=== PATIENT | male | born 1990 | race Caucasian/White ===

== ENCOUNTER 2017-01-05 09:10 | Emergency (ER) | payer OTHER ==
[~2017-01-05] VITALS: Ht 175.3 cm; Wt 71.3 kg
[~2017-01-05 09:10] MED LIST: ACET500C5 PO; ALBU8.5H3 INH; BENZ100C70 PO; DICY10CA60 PO; FAMO-96 PO; ONDA-43 PO; PSEU120T11 PO; UDROBDM PO
[2017-01-05 09:12] VITALS: Ht 175.3 cm; Wt 71.3 kg
[2017-01-05] MEDS ORDERED: AZIT250T94 PO (09:58)
[2017-01-05] MEDS ORDERED: ALBU8.5H3 INH (09:58)
[2017-01-05] MEDS ORDERED: PRED20TA PO (09:58)
--- NOTE | 2017-01-05 09:59 | ERD ---
ER Documentation Chief Complaint Date/Time DATE: 01/05/17 TIME: 09:58 Chief Complaint pt bib self with c/o sore throat and cough a few days ago HPI This is a 18-year-old male complains of cough for 4 days with some dark yellow productive sputum with onset of sore throat yesterday. Says he has subjective fevers and chills no headache vomiting diarrhea nausea no shortness of breath no photophobia or neck pain ROS All systems reviewed and are negative except as per history of present illness. Medications Home Meds Active Scripts Prednisone* (Prednisone*) 20 Mg Tab, 60 MG PO DAILY for 5 Days, TAB Prov:ANNKINDRAOLELEOLOS A. DO 01/05/17 Albuterol Sulfate* (Proair HFA*) 8.5 Gm Hfa.aer.ad, 2 PUFF INH Q4, #1 INHALER Prov:ANNKINDRAOLEVERONICAARTIS Willis. DO 01/05/17 Azithromycin* (Zithromax*) 250 Mg Tablet, 250 MG PO .EvelynPACK DIRECTED, #6 TAB TAKE 500 MG (2 TABS) THE FIRST DAY THEN 250 MG (1 TAB) DAYS 2-5 Prov:ANNKINDRAOLEVERONICASTOLOS A. DO 01/05/17 Albuterol Sulfate* (Proair HFA*) 8.5 Gm Hfa.aer.ad, 2 PUFF INH Q4, #1 INHALER Prov:LIBAN MATHEW PA-C 05/04/16 Pseudoephedrine Hcl (Sudafe 12-Hour) 120 Mg Tablet.er, 120 MG PO BID Y for CONGESTION for 14 Days, TAB.SA Prov:LIBAN MATHEW PA-C 05/04/16 Guaifenesin-Dextromethorphan* (Robitussin* DM) 100MG/10MG/5ML Syrup, 5 ML PO Q4H Y for COUGH for 14 Days, ML Prov:LIBAN MATHEW PA-C 05/04/16 Acetaminophen* (Tylophen*) 500 Mg Capsule, 1 CAP PO Q6H Y for PAIN AND OR ELEVATED TEMP, #20 CAP Prov:LIBAN MATHEW PA-C 05/04/16 Benzonatate* (Tessalon Perle*) 100 Mg Capsule, 100 MG PO Q8H Y for COUGH for 14 Days, CAP Prov:LIBAN MATHEW DORENEC 05/04/16 Famotidine* (Pepcid*) 20 Mg Tablet, 20 MG PO BID for 4 Days, TAB Prov:CATRACHITO LANDEROS Nicole 04/08/16 Dicyclomine Hcl* (Bentyl*) 10 Mg Capsule, 10 MG PO QID for 3 Days, CAP Prov:CATRACHITO LANDEROS C 04/08/16 Ondansetron Hcl* (Zofran*) 4 Mg Tab, 4 MG PO Q4H Y for NAUSEA AND OR VOMITING for 5 Days, TAB Prov:CATRACHITO LANDEROS C 04/08/16 Allergies Allergies: Coded Allergies: No Known Allergy (Unverified , 05/04/16) PMhx/Soc Medical and Surgical Hx: pt denies Surgical Hx History of Surgery: No Anesthesia Reaction: No Hx Neurological Disorder: No Hx Respiratory Disorders: Yes (CHRONIC BRONCHITIS) Hx Cardiac Disorders: Yes (HTN) Hx Psychiatric Problems: No Hx Miscellaneous Medical Probl: No Hx Alcohol Use: No Hx Substance Use: No Hx Tobacco Use: Yes (quit 01/05) Smoking Status: Never smoker FmHx Family History: No coronary disease Physical Exam Vitals Vital Signs Date Time Temp Pulse Resp B/P Pulse Ox O2 Delivery O2 Flow Rate FiO2 01/05/17 09:12 98.3 74 16 146/79 97 Physical Exam Const: [Well-developed, well-nourished] Head: [Atraumatic, normocephalic] Eyes: [Normal Conjunctiva, PERRLA, EOMI, normal sclera, no nystagmus] ENT: [Normal External Ears, Nose and Mouth, moist mucus membranes mild oropharyngeal erythema.] Neck: [Full range of motion. No meningismus, no lymphadenopathy.] Resp: [Clear to auscultation bilaterally, no wheezing, rhonchi, rales] Cardio: [Regular rate and rhythm, no murmurs, S1 S2 present] Abd: [Soft, non tender x 4, non distended. Normal bowel sounds, no guarding or rebound, no pulsitile abdominal masses or bruits] Skin: [No petechiae or rashes, no ecchymosis , no maculopapular rash] Back: [No midline or flank tenderness] Ext: [No cyanosis, or edema, FROM x 4, normal inspection, neurovascularly intact x 4] Neur: [Awake and alert, STR 5/5 x 4, sensation intact x 4, no focal findings, cerebellum intact] Psych: [Normal Mood and Affect] Departure Diagnosis: Primary Impression: Bronchitis Additional Impression: Sore throat Condition: Stable Patient Instructions: Self-Care for Sore Throats, Bronchitis, Antiobiotic Treatment (Adult) RICKY LOZOYA DO Jan 05, 2017 09:59
== END 2017-01-05 10:25 | disposition home or self-care (01) ==
LOC: FTE 09:10
DX: J20.9 Acute bronchitis, unspecified (principal); I10 Essential (primary) hypertension; Z87.891 Personal history of nicotine dependence
CPT/HCPCS: 99284

== ENCOUNTER 2017-12-21 09:47 | Emergency (ER) | END 2017-12-21 11:18 | disposition home or self-care (01) ==

== ENCOUNTER 2018-03-17 08:27 | Emergency (ER) | END 2018-03-17 09:54 | disposition home or self-care (01) ==

== ENCOUNTER 2018-03-26 02:09 | Emergency (ER) | END 2018-03-26 04:10 | disposition home or self-care (01) ==

== ENCOUNTER 2018-09-19 12:29 | Emergency (ER) | payer OTHER ==
[~2018-09-19] VITALS: Ht 175.3 cm; Wt 83.3 kg
[~2018-09-19 12:29] MED LIST changes: -ALBU8.5H3 INH; +ALBU8.5H8 INH; +AZIT250T PO; +BENZ-6 PO; -BENZ100C70 PO; +BENZ1LOZ52 MM; +BENZ200C68 PO; +CETI10CA PO; +D-ME473S2 PO; +DICY10CA40 PO; -DICY10CA60 PO; +GUAI5SYR2 PO; +NAPR-985 PO; -ONDA-43 PO; +ONDA4TAB13 PO; +PRED20TA PO; -UDROBDM PO
[2018-09-19 13:14] VITALS: Ht 175.3 cm; Wt 83.3 kg
--- NOTE | 2018-09-19 15:08 | ERD ---
ER Documentation Chief Complaint Chief Complaint abdominal pain x 1 week, blood in stool today HPI 27-year-old male presents complaint abdominal pain for the past week. States the pain is made worse after eating. In addition he says that he saw stool and his blood today. He states that the stool has been leaking out and is needed to use tissues in order to stop it. Denies having had blood in stool before. Let us described as bright red. He does state he has a history of gastritis. He also has self-reported history of anxiety. Abdominal pain is located in mostly in the left lower quadrant. Denies any current pain. Denies having history of diverticulitis or diverticulosis. Denies any nausea, vomiting, diarrhea, con stipation, fevers, chills. ROS All systems reviewed and are negative except as per history of present illness. Medications Home Meds Active Scripts Acetaminophen* (Tylophen*) 500 Mg Capsule, 2 CAP PO Q8H PRN for PAIN AND OR ELEVATED TEMP, #20 CAP Prov:VICKI MOYA 09/19/18 Famotidine* (Pepcid*) 20 Mg Tablet, 20 MG PO BID for GERD for 14 Days, TAB Prov:VICKI MOYA 09/19/18 Dextromethorphan Hb-Promethazine Hcl* (Promethazine DM* Syrup) 473 Ml Syrup, 5 ML PO Q6 PRN for COUGH, #100 ML Prov:VICKI ANDRADE PA-C 03/26/18 Benzonatate* (Benzonatate*) 200 Mg Capsule, 200 MG PO TID PRN for COUGH, #15 CAP Prov:VICKI ANDRADE PA-C 03/26/18 Acetaminophen* (Tylophen*) 500 Mg Capsule, 1 CAP PO Q6H PRN for PAIN AND OR ELEVATED TEMP, #20 CAP Prov:CLAUDIA CARRASQUILLO PA-C 03/17/18 Dextromethorphan Hb-Promethazine Hcl* (Promethazine DM* Syrup) 473 Ml Syrup, 5 ML PO Q6 PRN for COUGH, #4 OZ Prov:CLAUDIA CARRASQUILLO PA-C 03/17/18 Cetirizine Hcl* (Zyrtec*) 10 Mg Capsule, 10 MG PO DAILY, #10 TAB.CHEW Prov:CLAUDIA CARRASQUILLO PA-C 03/17/18 Benzocaine/Menthol* (Cepacol* Sore Throat Lozenges) 1 Each Lozenge, 1 EACH MM q2h PRN for SORE THROAT, #20 LOZENGE Prov:CLAUDIA CARRASQUILLO PA-C 03/17/18 Acetaminophen* (Tylophen*) 500 Mg Capsule, 1 CAP PO Q6H PRN for PAIN AND OR EL EVATED TEMP, #30 CAP Prov:HUGO JANG PA-C 12/21/17 Naproxen* (Naprosyn*) 500 Mg Tablet, 500 MG PO BID PRN for PAIN AND/OR INFLAMMATION, #30 TAB Prov:HUGO JANG PA-C 12/21/17 Prednisone* (Prednisone*) 20 Mg Tab, 60 MG PO DAILY for 5 Days, TAB Prov:RICKY LOZOYA DO 01/05/17 Albuterol Sulfate* (Proair HFA*) 8.5 Gm Hfa.aer.ad, 2 PUFF INH Q4, #1 INHALER Prov:RICKY LOZOYA DO 01/05/17 Azithromycin* (Zithromax*) 250 Mg Tablet, 250 MG PO .ZPACK DIRECTED, #6 TAB TAKE 500 MG (2 TABS) THE FIRST DAY THEN 250 MG (1 TAB) DAYS 2-5 Prov:RICKY LOZOYA DO 01/05/17 Albuterol Sulfate* (Proair HFA*) 8.5 Gm Hfa.aer.ad, 2 PUFF INH Q4, #1 INHALER Prov:LIBAN MATHEW PA-C 05/04/16 Pseudoephedrine Hcl (Sudafe 12-Hour) 120 Mg Tablet.er, 120 MG PO BID PRN for CONGESTION for 14 Days, TAB.SA Prov:LIBAN MATHEW PA-C 05/04/16 Guaifenesin-Dextromethorphan* (Robitussin* DM) 100MG/10MG/5ML Syrup, 5 ML PO Q4H PRN for COUGH for 14 Days, ML Prov:LIBAN MATHEW PA-C 05/04/16 Acetaminophen* (Tylophen*) 500 Mg Capsule, 1 CAP PO Q6H PRN for PAIN AND OR ELEVATED TEMP, #20 CAP Prov:LIBAN MATHEW PA-C 05/04/16 Benzonatate* (Tessalon Perle*) 100 Mg Capsule, 100 MG PO Q8H PRN for COUGH for 14 Days, CAP Prov:LIBAN MATHEW PA-C 05/04/16 Famotidine* (Pepcid*) 20 Mg Tablet, 20 MG PO BID for 4 Days, TAB Prov:LETI,CATRACHITO C 04/08/16 Dicyclomine HCl (Dicyclomine HCl) 10 Mg Capsule, 10 MG PO QID for 3 Days, CAP Prov:LETI,CATRACHITO C 04/08/16 Ondansetron Hcl* (Zofran*) 4 Mg Tab, 4 MG PO Q4H PRN for NAUSEA AND OR VOMITING for 5 Days, TAB Prov:MIKALA LANDEROSNA C 04/08/16 Allergies Allergies: Coded Allergies: No Known Allergy (Unverified , 12/21/17) PMhx/Soc History of Surgery: No Anesthesia Reaction: No Hx Neurological Disorder: No Hx Respiratory Disorders: Yes (CHRONIC BRONCHITIS) Hx Cardiac Disorders: No Hx Psychiatric Problems: No Hx Miscellaneous Medical Probl: No Hx Alcohol Use: No Hx Substance Use: No Hx Tobacco Use: No FmHx Family History: No diabetes, No coronary disease, No other Physical Exam Vitals Vital Signs Date Temp Pulse Resp B/P (MAP) Pulse Ox O2 O2 Flow FiO2 Time Delivery Rate 09/19/18 98.2 62 18 158/107 97 13:14 (124) Physical Exam Const: No acute distress Head: Atraumatic Eyes: Normal Conjunctiva ENT: Normal External Ears, Nose and Mouth. Neck: Full range of motion. No meningismus. Resp: Clear to auscultation bilaterally Cardio: Regular rate and rhythm, no murmurs Abd: Soft, non tender, non distended. Normal bowel sounds Skin: No petechiae or rashes Back: No midline or flank tenderness Ext: No cyanosis, or edema Neur: Awake and alert Psych: Normal Mood and Affect Rectal: No blood noted. No rectal masses palpated. There is tenderness to palpation on exam in the rectal wall. Result Diagram: 09/19/18 1518 09/19/18 1518 Results 24 hrs Laboratory Tests Test 09/19/18 15:18 4/29/19 15:55 White Blood Count 6.5 10^3/ul Red Blood Count 5.50 10^6/ul Hemoglobin 15.9 g/dl Hematocrit 47.8 % Mean Corpuscular Volume 86.9 fl Mean Corpuscular Hemoglobin 28.9 pg Mean Corpuscular Hemoglobin Concent 33.3 g/dl Red Cell Distribution Width 12.1 % Platelet Count 262 10^3/UL Mean Platelet Volume 8.5 fl Immature Granulocytes % 0.300 % Neutrophils % 52.8 % Lymphocytes % 35.7 % Monocytes % 8.9 % Eosinophils % 1.8 % Basophils % 0.5 % Nucleated Red Blood Cells % 0.0 /100WBC Immature Granulocytes # 0.020 10^3/ul Neutrophils # 3.5 10^3/ul Lymphocytes # 2.3 10^3/ul Monocytes # 0.6 10^3/ul Eosinophils # 0.1 10^3/ul Basophils # 0.0 10^3/ul Nucleated Red Blood Cells # 0.0 10^3/ul Sodium Level 144 mmol/L Potassium Level 3.7 mmol/L Chloride Level 102 mmol/L Carbon Dioxide Level 30 mmol/L Anion Gap 12 Blood Urea Nitrogen 14 mg/dl Creatinine 0.86 mg/dl Est Glomerular Filtrat Rate mL/min > 60 mL/min Glucose Level 96 mg/dl Calcium Level 10.5 mg/dl Total Bilirubin 0.4 mg/dl Direct Bilirubin 0.00 mg/dl Indirect Bilirubin 0.4 mg/dl Aspartate Amino Transf (AST/SGOT) 24 IU/L Alanine Aminotransferase (ALT/SGPT) 25 IU/L Alkaline Phosphatase 57 IU/L Total Protein 8.4 g/dl Albumin 5.1 g/dl Globulin 3.30 g/dl Albumin/Globulin Ratio 1.54 Lipase 88 U/L Urine Color COLORLESS Urine Clarity CLEAR Urine pH 7.0 Urine Specific [place] 1.003 Urine Ketones NEGATIVE mg/dL Urine Nitrite NEGATIVE mg/dL Urine Bilirubin NEGATIVE mg/dL Urine Urobilinogen NEGATIVE mg/dL Urine Leukocyte Esterase NEGATIVE Stanley/ul Urine Hemoglobin NEGATIVE mg/dL Urine Glucose NEGATIVE mg/dL Urine Total Protein NEGATIVE mg/dl Current Medications Medications Dose Sig/Kody Start Time Status Last (Trade) Ordered Route PRN Stop Time Admin Dose Reason Admin IV Flush 10 ml STK-MED 09/19/18 DC (NS 10 ml) ONCE .ROUTE 16:12 09/19/18 16:13 Sodium 100 ml @ ud STK-MED 09/19/18 DC Chloride ONCE .ROUTE 16:12 09/19/18 16:13 Iohexol 150 ml STK-MED 09/19/18 DC (Omnipaque ONCE .ROUTE 16:12 300mg/ ml) 09/19/18 16:13 Procedures/MDM DIAGNOSTIC IMAGING REPORT Patient: MAGALI GÓMEZ : 1990 Age: 27 Sex: M MR #: [id number] DOS: 09/19/18 1455 Ordering MD: VICKI MOYA Location: [facility] Room/Bed: PROCEDURE: CT Abdomen and Pelvis with contrast. CLINICAL INDICATION: Abdomen and pelvis pain. Rectal bleeding. TECHNIQUE: CT scan of the abdomen and pelvis with contrast was performed. The patient was scanned following the uncomplicated intravenous administration of 90 ml of Omnipaque-300. Coronal and sagittal reformatted images were obtained from the axial source images. Images were reviewed on a high-resolution PACS workstation. Total exam DLP is 651.18 mGy-cm. CTDIvol is 10.02 mGy. One or more of the following dose reduction techniques were used: Automated exposure control, adjustment of the mA and/or kV according to patient size, use of iterative reconstruction technique. DICOM images are available. COMPARISON: CT scan of the abdomen and pelvis dated 08/13/2014. FINDINGS: The lung bases are normal. There is no pleural effusion. The liver is normal in size and attenuation. There is no focal hepatic lesion. The gallbladder and bile ducts are normal. The spleen is normal in size. There is no focal splenic lesion. Both adrenals are normal with no enlargement or mass. The pancreas is unremarkable with no mass or evidence of pancreatitis. Both kidneys demonstrate normal contrast enhancement. There is no renal mass or hydronephrosis. The abdominal aorta is not dilated. There is no retroperitoneal lymphadenopathy or mass. There is no pelvic lymphadenopathy or mass. The bladder and distal ureters are normal. The appendix is well seen and appears normal. The bowel and mesentery are normal. There is no free fluid or free gas. The osseous structures are unremarkable with no fracture or lytic lesion. IMPRESSION: 1. Unremarkable contrast enhanced CT scan of the abdomen and pelvis. 2. No change from 08/13/2014. RPTAT: QQ .Miguel Moreno MD, MD Date Time Electronically viewed and signed by .Miguel Moreno MD, MD on 09/19/2018 16:52 .R/ CC: VICKI MOYA [phone] MDM: Because patient was complaining of abdominal pain in the low left quadrant along with bloody stools, there was concern for possible diverticular colitis. CT abdomen pelvis was ordered and results were within normal limits. I have low suspicion for appendicitis due to patient history and exam and imaging results. I have low suspicion for volvulus or obstruction due patient history and exam, including lack of history of biliary emesis and normal physical exam. I have low suspicion for testicular torsion or phimosis due to patient history and normal exam. I have low suspicion of invasive diarrhea due to patient history and exam, including lack of hematochezia. I have low suspicion of DKA based on patient history and exam, including normal glucose, urinalysis, and lack of signs of dehydration. I have low suspicion for adrenal crisis, AAA, mesenteric ischemia, pyelonephritis, cholecystitis, aortic dissection, ectopic, MT, pneumonia, acute pancreatitis, PID, or other emergent causes based on patient history and exam. Most likely diagnosis is gastritis. There is no bleeding on rectal exam but there was tenderness to palpation indicating possible internal hemorrhoid versus fissure. Patient advised to follow-up with his primary care regarding this. Based on these findings I do not feel that additional labs, imaging. or antibiotics are necessary. Patient was discharged with strict ER precautions. Patient was recommended to follow-up with PMD. All questions answered at discharge. Departure Diagnosis: Primary Impression: Gastritis Gastritis type: unspecified gastritis Chronicity: acute Gastritis bleeding: presence of bleeding unspecified Qualified Codes: K29.00 - Acute gastritis without bleeding Additional Impression: BRBPR (bright red blood per rectum) Condition: Stable VICKI MOYA Sep 19, 2018 15:08
[2018-09-19] MEDS ORDERED: IOHEXOL 300MG/ML 150 ML BTL ONE (16:12)
[2018-09-19] MEDS ORDERED: SOD CHLORIDE 0.9% 100 ML ONE (16:12)
[2018-09-19] MEDS ORDERED: FAMO-96 PO (17:16)
[2018-09-19] MEDS ORDERED: ACET500C5 PO (17:16)
== END 2018-09-19 17:38 | disposition home or self-care (01) ==
LOC: FTE 12:29
DX: K29.00 Acute gastritis without bleeding (principal); K62.5 Hemorrhage of anus and rectum
CPT/HCPCS: 36415; 74177; 80053; 81003; 83690; 85025; Q9967; Z7502; Z7610

== ENCOUNTER 2018-11-13 14:54 | Emergency (ER) | payer OTHER ==
[~2018-11-13] VITALS: Ht 170.2 cm; Wt 77.1 kg
[2018-11-13 15:16] VITALS: BP 152/81; PULSE 86; RESP 18; Ht 170.2 cm; Wt 77.1 kg
[2018-11-13] MEDS ORDERED: PRED20TA PO (15:49)
[2018-11-13] MEDS ORDERED: PROM5SYR2 PO (15:49)
--- NOTE | 2018-11-13 15:59 | ERD ---
ER Documentation Chief Complaint Chief Complaint hoarse voice and head congesiton x 2 days, denies sorethroat HPI 27-year-old male presents with complaint of hoarse voice, congestion, and sore throat for the past 2 days. Patient states that he had fevers as well for which she is taking Tylenol but has not had fever today. Last time he took Tylenol was yesterday. Denies headache, stiff neck, photophobia, abdominal pain, chest pain, drooling, trismus, difficulty swallowing, muffled voice, difficulty breathing, rash, or neck stiffness. ROS All systems reviewed and are negative except as per history of present illness. Medications Home Meds Active Scripts Promethazine HCl/Codeine (Prometh-Codein 6.25-10 mg/5 ml) 5 Ml Syrup, 5 ML PO Q6, #4 OZ Prov:VICKI MOYA 11/13/18 Prednisone* (Prednisone*) 20 Mg Tab, 40 MG PO DAILY for 4 Days, TAB Prov:VICKI MOYA 11/13/18 Acetaminophen* (Tylophen*) 500 Mg Capsule, 2 CAP PO Q8H PRN for PAIN AND OR ELEVATED TEMP, #20 CAP Prov:VICKI MOYA 09/19/18 Famotidine* (Pepcid*) 20 Mg Tablet, 20 MG PO BID for GERD for 14 Days, TAB Prov:VICKI MOYA 09/19/18 Dextromethorphan Hb-Promethazine Hcl* (Promethazine DM* Syrup) 473 Ml Syrup, 5 ML PO Q6 PRN for COUGH, #100 ML Prov:VICKI ANDRADE PA-C 03/26/18 Benzonatate* (Benzonatate*) 200 Mg Capsule, 200 MG PO TID PRN for COUGH, #15 CAP Prov:VICKI ANDRADE PA-C 03/26/18 Acetaminophen* (Tylophen*) 500 Mg Capsule, 1 CAP PO Q6H PRN for PAIN AND OR ELEVATED TEMP, #20 CAP Prov:CLAUDIA CARRASQUILLO PA-C 03/17/18 Dextromethorphan Hb-Promethazine Hcl* (Promethazine DM* Syrup) 473 Ml Syrup, 5 ML PO Q6 PRN for COUGH, #4 OZ Prov:CLAUDIA CARRASQUILLO PA-C 03/17/18 Cetirizine Hcl* (Zyrtec*) 10 Mg Capsule, 10 MG PO DAILY, #10 TAB.CHEW Prov:CLAUDIA CARRASQUILLO PA-C 03/17/18 Benzocaine/Menthol* (Cepacol* Sore Throat Lozenges) 1 Each Lozenge, 1 EACH MM q2 h PRN for SORE THROAT, #20 LOZENGE Prov:CLAUDIA CARRASQUILLO PA-C 03/17/18 Acetaminophen* (Tylophen*) 500 Mg Capsule, 1 CAP PO Q6H PRN for PAIN AND OR ELEVATED TEMP, #30 CAP Prov:HUGO JANG PA-C 12/21/17 Naproxen* (Naprosyn*) 500 Mg Tablet, 500 MG PO BID PRN for PAIN AND/OR INFLAMMATION, #30 TAB Prov:HUGO JANGC 12/21/17 Prednisone* (Prednisone*) 20 Mg Tab, 60 MG PO DAILY for 5 Days, TAB Prov:RICKY LOZOYA DO 01/05/17 Albuterol Sulfate* (Proair HFA*) 8.5 Gm Hfa.aer.ad, 2 PUFF INH Q4, #1 INHALER Prov:RICKY LOZOYA DO 01/05/17 Azithromycin* (Zithromax*) 250 Mg Tablet, 250 MG PO .ZPACK DIRECTED, #6 TAB TAKE 500 MG (2 TABS) THE FIRST DAY THEN 250 MG (1 TAB) DAYS 2-5 Prov:RICKY LOZOYA DO 01/05/17 Albuterol Sulfate* (Proair HFA*) 8.5 Gm Hfa.aer.ad, 2 PUFF INH Q4, #1 INHALER Prov:LIBAN MATHEW PA-C 05/04/16 Pseudoephedrine Hcl (Sudafe 12-Hour) 120 Mg Tablet.er, 120 MG PO BID PRN for CONGESTION for 14 Days, TAB.SA Prov:LIBAN MATHEW PA-C 05/04/16 Guaifenesin-Dextromethorphan* (Robitussin* DM) 100MG/10MG/5ML Syrup, 5 ML PO Q4H PRN for COUGH for 14 Days, ML Prov:KWAN MATHEWPARRISH IRAHETA 05/04/16 Acetaminophen* (Tylophen*) 500 Mg Capsule, 1 CAP PO Q6H PRN for PAIN AND OR ELEVATED TEMP, #20 CAP Prov:KWAN MATHEWPARRISH CATHERINEC 05/04/16 Benzonatate* (Tessalon Perle*) 100 Mg Capsule, 100 MG PO Q8H PRN for COUGH for 14 Days, CAP Prov:PRIYANKALIBAN CATHERINEC 05/04/16 Famotidine* (Pepcid*) 20 Mg Tablet, 20 MG PO BID for 4 Days, TAB Prov:LETICATRACHITO GHOSH Nicole 04/08/16 Dicyclomine HCl (Dicyclomine HCl) 10 Mg Capsule, 10 MG PO QID for 3 Days, CAP Prov:CATRACHITO LANDEROS Nicole 04/08/16 Ondansetron Hcl* (Zofran*) 4 Mg Tab, 4 MG PO Q4H PRN for NAUSEA AND OR VOMITING for 5 Days, TAB Prov:CATRACHITO LANDEROS Nicole 04/08/16 Allergies Allergies: Coded Allergies: No Known Allergy (Unverified , 12/21/17) PMhx/Soc History of Surgery: No Anesthesia Reaction: No Hx Neurological Disorder: No Hx Respiratory Disorders: Yes (CHRONIC BRONCHITIS) Hx Cardiac Disorders: No Hx Psychiatric Problems: No Hx Miscellaneous Medical Probl: No Hx Alcohol Use: No Hx Substance Use: Yes (marijuana) Hx Tobacco Use: No FmHx Family History: No diabetes, No coronary disease, No other Physical Exam Vitals Vital Signs Date Temp Pulse Resp B/P (MAP) Pulse Ox O2 O2 Flow FiO2 Time Delivery Rate 11/13/18 97.9 86 18 152/81 97 15:16 (104) Physical Exam Const: No acute distress Head: Atraumatic. sinuses are nontender to palpation. Eyes: Normal Conjunctiva ENT: Normal External Ears, Nose and Mouth. Tonsils are nonedematous erythematous bilaterally with no exudates. Uvula is midline. There are no true peritonsillar masses noted. No drooling or trismus noted. Neck: Full range of motion. No meningismus. No cervical lymphadenopathy. Resp: Clear to auscultation bilaterally Cardio: Regular rate and rhythm, no murmurs Abd: Soft, non tender, non distended. Normal bowel sounds Skin: No petechiae or rashes Back: No midline or flank tenderness Ext: No cyanosis, or edema Neur: Awake and alert Psych: Normal Mood and Affect Neuro: M/S: Alert and oriented Face: EOMI, face and pharynx with normal sensation and function Motor: Normal strength throughout Sensation: Normal sensation throughout Speech: Normal Cerebel: Normal coordination Normal gait Normal finger to nose DTR: 2+ and symmetric upper/lower extremities Results 24 hrs Current Medications Medications Dose Sig/Kody Start Time Status Last (Trade) Ordered Route PRN Stop Time Admin Dose Reason Admin Prednisone 40 mg ONCE ONCE 11/13/18 (Prednisone) PO 16:00 11/13/18 16:01 Prednisone 40 mg ONCE ONCE 11/13/18 (Prednisone) PO 16:00 11/13/18 16:01 Procedures/MDM MDM I have low suspicion for strep throat based on history and exam findings, as well as patient not meeting centor criteria for rapid strep testing. I have low suspicion for bacterial sinusitis, pneumonia, tuberculosis, meningitis, pneumothorax, PE, aspirated foreign body, respiratory distress, acute heart failure or other life threatening etiology based on patient history and exam findings. Most likely etiology is viral URI causing laryngitis and no further tests are necessary. Patient given rx for prednisone and promethazine with codeine for cough.. Patient advised to rest and stay well hydrated. Guarding patient's sore throat, I have low suspicion for epiglottitis, peritonsilar abscess, ludwigs angina, retropharyngeal abscess, or other emergent etiologies based on patients exam and history. P Risk and benefits of prednisone as well as well as promethazine with codeine were discussed with the patient's. At this time, patient is stable for discharge and outpatient management. I have instructed the patient to follow-up with his/her primary care physician in 1-2 days. I have discussed with the patient the possibility of needing to see a specialist for further workup and imaging studies if symptoms persist. I have instructed the patient to promptly return to the ER for any new or worsening symptoms including but not limited to increased pain, fever, nausea, vomiting, weakness or LOC. The patient and/or family expressed understanding of and agreement with this plan. All questions were answered. Home care instructions were provided. DISCLAIMER: Inadvertent spelling and grammatical errors are likely due to EHR/dictation software use and do not reflect on the overall quality of patient care. Also, please note that the electronic time recorded on this note does not necessarily reflect the actual time of the patient encounter. Departure Diagnosis: Primary Impression: Laryngitis Additional Impression: Cough Condition: Stable Patient Instructions: Self-Care for Sore Throats, Laryngitis Referrals: [facility] YOU HAVE RECEIVED A MEDICAL SCREENING EXAM AND THE RESULTS INDICATE THAT YOU DO NOT HAVE A CONDITION THAT REQUIRES URGENT TREATMENT IN THE EMERGENCY DEPARTMENT. FURTHER EVALUATION AND TREATMENT OF YOUR CONDITION CAN WAIT UNTIL YOU ARE SEEN IN YOUR DOCTORS OFFICE WITHIN THE NEXT 1-2 DAYS. IT IS YOUR RESPONSIBILITY TO MAKE AN APPOINTMENT FOR FOLOW-UP CARE. IF YOU HAVE A PRIMARY DOCTOR --you should call your primary doctor and schedule an appointment IF YOU DO NOT HAVE A PRIMARY DOCTOR YOU CAN CALL OUR PHYSICIAN REFERRAL HOTLINE AT IF YOU CAN NOT AFFORD TO SEE A PHYSICIAN YOU CAN CHOSE FROM THE FOLLOWING [facility] [address] [facility] [address] [facility] [address] [facility] [address] [facility] [address] [facility] [facility]. [address] Additional Instructions: FOLLOW UP WITH YOUR PRIMARY CARE PHYSICIAN TOMORROW.Return to this facility if you are not improving as expected. VICKI MOYA Nov 13, 2018 15:59
[2018-11-13] MEDS ORDERED: predniSONE 20 MG TAB PO ONE ×2 (16:00)
== END 2018-11-13 16:05 | disposition home or self-care (01) ==
LOC: FTE 14:54
DX: J04.0 Acute laryngitis (principal)
CPT/HCPCS: J7512; Z7502; 99283